=== PATIENT | male | born 1955 | race Caucasian/White ===

== ENCOUNTER 2016-06-15 05:46 | Inpatient (IN) | payer MEDICARE ==
[~2016-06-15] VITALS: Ht 170.2 cm; Wt 72.8 kg
[~2016-06-15 05:46] MED LIST: ALPR-475 PO; ATOR10TA9 PO; ENAL20TA PO; MINO100T2 PO; RANI300T PO
[2016-06-15] MEDS ORDERED: LACTATED RINGERS 1,000 ML IV SCH ×2 (06:55→13:30)
[2016-06-15 06:56] VITALS: BP 130/90
[2016-06-15] MEDS ORDERED: BACITRACIN OINT 500U/GM, 15 GM ONE (07:31)
[2016-06-15] MEDS ORDERED: LIDOCAINE/PF 1%-EPI 1:200K, 30ML ONE (07:31)
[2016-06-15] MEDS ORDERED: MICROFIBRILLAR COLLAGEN 70X35X1 DRESSING ONE (07:31)
[2016-06-15] MEDS ORDERED: FENTANYL PF 250 MCG/5ML ONE (07:40)
[2016-06-15] MEDS ORDERED: MIDAZOLAM 1 MG/ML, 2ML ONE ×2 (07:40→11:43)
[2016-06-15] MEDS ORDERED: SUCCINYLCHOLINE 20 MG/ML, 10ML ONE (07:41)
[2016-06-15] MEDS ORDERED: EPHEDRINE 50 MG/ML, 1ML ONE (07:41)
[2016-06-15] MEDS ORDERED: PHENYLEPHRINE 10 MG/ML ONE (07:41)
[2016-06-15] MEDS ORDERED: PROPOFOL 10 MG/ML, 50ML ONE ×2 (07:41)
[2016-06-15] MEDS ORDERED: CEFAZOLIN 1,000 MG ONE (07:41)
[2016-06-15] MEDS ORDERED: ONDANSETRON 2MG/ML, 2ML ONE (07:41)
[2016-06-15] MEDS ORDERED: LIDOCAINE 1%-EPI 1:100K, 30ML INFIL ONE (09:10)
[2016-06-15] MEDS ORDERED: METOCLOPRAMIDE 5 MG/ML, 2ML IV PRN (09:30)
[2016-06-15] MEDS ORDERED: ONDANSETRON 2MG/ML, 2ML IVPush PRN (09:30)
[2016-06-15] MEDS ORDERED: hydrALAzine 20 MG/ML, 1ML IV PRN (09:30)
[2016-06-15] MEDS ORDERED: PROMETHAZINE 25 MG/ML, 1ML IV PRN (09:30)
[2016-06-15] MEDS ORDERED: ALBUTEROL SULFATE 2.5 MG/3 ML NPPB PRN (09:30)
[2016-06-15] MEDS ORDERED: HYDROmorphone 1 MG/ML, 1ML IV PRN (09:30)
[2016-06-15] MEDS ORDERED: ACETAMINOPHEN 325 MG TABLET PO PRN (09:30)
[2016-06-15] MEDS ORDERED: LABETALOL 5MG/ML, 20ML IV PRN (09:30)
[2016-06-15] MEDS ORDERED: OXYcodone 5 MG/5 ML ORAL.SOL UDC PO PRN (09:30)
[2016-06-15] MEDS ORDERED: EPHEDRINE 50 MG/ML, 1ML IVPush PRN (09:30)
[2016-06-15] MEDS ORDERED: HYDROmorphone 1 MG/ML, 1ML ONE (10:01)
[2016-06-15] MEDS ORDERED: FENTANYL PF 100 MCG/2ML ONE (11:32)
[2016-06-15] MEDS ORDERED: ACETAMINOPHEN 650 MG/20.3 ML UDC ONE (11:32)
[2016-06-15] MEDS ORDERED: OXYcodone 5 MG/5 ML ORAL.SOL UDC ONE (11:32)
[2016-06-15] MEDS: FENTANYL PF 100 MCG/2ML IV PRN ×2 (11:35→12:00)
[2016-06-15] MEDS ORDERED: MIDAZOLAM 1 MG/ML, 2ML IV PRN (12:00)
[2016-06-15] MEDS ORDERED: ACETAMINOPHEN 500 MG TABLET PO PRN (13:30)
[2016-06-15] MEDS ORDERED: MORPHINE SULFATE 4 MG/ML, 1ML IVPush PRN (13:30)
[2016-06-15] MEDS ORDERED: ONDANSETRON 2MG/ML, 2ML IV PRN (13:30)
[2016-06-15 13:48] VITALS: BP 128/86
[2016-06-15] MEDS ORDERED: OXYcodone IR 5MG TABLET PO PRN (15:30)
[2016-06-15] MEDS: CEFAZOLIN PMX 2GM/100ML 100 ML IV SCH (16:12)
[2016-06-15 19:52] VITALS: BP 142/85
[2016-06-15] MEDS ORDERED: MINOCYCLINE 100MG CAPSULE PO SCH (21:00)
[2016-06-15] MEDS ORDERED: ATORVASTATIN 10 MG TABLET PO SCH (21:00)
[2016-06-15] MEDS ORDERED: FAMOTIDINE 20 MG TABLET PO SCH (21:00)
[2016-06-16] MEDS: CEFAZOLIN PMX 2GM/100ML 100 ML IV SCH (01:05)
[2016-06-16 02:11] VITALS: BP 137/85
[2016-06-16] MEDS ORDERED: OXYC5CAP4 PO (07:01)
[2016-06-16 07:45] VITALS: BP 136/84
[2016-06-16] MEDS ORDERED: ENALAPRIL 20MG TABLET PO SCH (09:00)
== END 2016-06-16 08:10 | disposition home or self-care (01) | DRG 168 ==
LOC: OR 05:46 → 4NOR 12:50 → OR 13:01
PROVIDERS: ADMIT Otolaryngology; ATTEND Otolaryngology
PROC: 0GBG0ZX Excision of Left Thyroid Gland Lobe, Open Approach, Diagnostic (ICD-10-PCS; 2016-06-15)
PROC: 0BB10ZZ Excision of Trachea, Open Approach (ICD-10-PCS; principal; 2016-06-15 07:30)
DX: D14.2 Benign neoplasm of trachea (principal); E04.1 Nontoxic single thyroid nodule; I10 Essential (primary) hypertension; K21.9 Gastro-esophageal reflux disease without esophagitis; E78.5 Hyperlipidemia, unspecified; F32.9 Major depressive disorder, single episode, unspecified; F41.9 Anxiety disorder, unspecified; H81.09 Meniere's disease, unspecified ear; R13.10 Dysphagia, unspecified
CPT/HCPCS: 88304; 88307; 88331; C1729; J0690; J1170; J2250; J2405; J2704; J3010; J3490; J0330; J2370; J7120